=== PATIENT | female | born 1995 | race Caucasian/White ===

== ENCOUNTER 2016-11-14 00:15 | Emergency (ER) | payer MEDICAID, OTHER ==
[2016-11-14] MEDS ORDERED: ACETAMINOPHEN 325 MG TAB As Ordered ONE (00:37)
[2016-11-14] MEDS ORDERED: ONDANSETRON 4 MG ORAL DISINTEGRATING TAB (S0181) As Ordered ONE (00:37)
[2016-11-14 01:13] LABS: AMPHETAMINES LEVEL URINE NEGATIVE (NEGATIVE); BENZODIAZEPINES URINE NEGATIVE (NEGATIVE); COCAINE METABOLITE URINE NEGATIVE (NEGATIVE); CONTROL LINE INT CTR LINE PRESENT; METHADONE URINE NEGATIVE (NEGATIVE); OPIATES URINE NEGATIVE (NEGATIVE); TRICYCLIC ANTIDEPRESS URINE NEGATIVE (NEGATIVE)
--- NOTE | 2016-11-14 02:10 | REPUSA ---
CLINICAL HISTORY: Neck pain. TECHNIQUE: Multiple axial images were obtained through the cervical spine. Images were also reconstru cted in coronal and sagittal planes. The study was performed without IV contrast. COMMENTS: There is no fracture or spondylolisthesis visualized. The paraspinal soft tissues are unremarkable. T here are no lytic or blastic lesions. Straightening of cervical lordosis is seen, suggesting muscular spasm. No significant disk herniation is noted at any level. Canal and foramina remain patent. IMPRESSION: 1. No fracture or spondylolisthesis. 2. Straightening of cervical lordosis is seen, suggesting muscular spasm. Thank you for your kind referral of this patient.
[2016-11-14] MEDS ORDERED: traMADol 50 MG TAB As Ordered ONE (02:20)
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
== END 2016-11-14 02:30 | disposition home or self-care (01) ==
LOC: M ED 00:15
DX: S13.4XXA Sprain of ligaments of cervical spine, initial encounter (principal); V43.52XA Car driver injured in collision with other type car in traffic accident, initial encounter; Y92.410 Unspecified street and highway as the place of occurrence of the external cause; Y93.89 Activity, other specified; Y99.8 Other external cause status; F17.200 Nicotine dependence, unspecified, uncomplicated
CPT/HCPCS: 72072; 72110; 72125; 80306; 99283; G0480

== ENCOUNTER 2017-10-01 00:06 | Emergency (ER) | payer OTHER, SELFPAY ==
[~2017-10-01] VITALS: Ht 170.2 cm; Wt 88.6 kg
[~2017-10-01 00:06] MED LIST: FLAG500T PO
[2017-10-01 00:07] VITALS: BP 120/78
== END 2017-10-01 01:07 | disposition left against medical advice (07) ==
LOC: M ED 00:06
DX: Z53.21 Procedure and treatment not carried out due to patient leaving prior to being seen by health care provider (principal)

== ENCOUNTER 2018-05-13 12:47 | Emergency (ER) | payer OTHER, SELFPAY ==
[2018-05-13 13:18] LABS: BASO % 0.5 % (0.0-1.0); EOS # 0.2 10^3/uL (0.0-0.50); EOS % 2.2 % (0.0-3.0); HEMATOCRIT 37.2 % (36.0-47.0); HEMOGLOBIN 12.5 g/dl (12.0-15.5); IMMATURE GRANULOCYTE % 0.4 % (0-3.0); LYMPH # 2.1 10^3/uL (1.5-6.5); LYMPH % 24.5 % (24.0-44.0); MEAN CORPUSCULAR HEMOGLOBIN 31.3 pg (27.0-33.0); MEAN CORPUSCULAR HGB CONC 33.6 g/dl (32.0-36.5); MONO # 0.5 10^3/uL (0.0-0.8); MONO % 6.2 % (0.0-5.0); NEUTROPHILS # 5.7 10^3/uL (1.8-7.7); NEUTROPHILS % 66.2 % (36.0-66.0); PLATELET COUNT, AUTOMATED 309 10^3/uL (150-450); RED CELL DISTRIBUTION WIDTH 13.7 % (11.5-14.5); WHITE BLOOD COUNT 8.6 10^3/uL (4.0-10.0)
[2018-05-13 13:48] LABS: ALBUMIN 3.6 GM/DL (3.2-5.2); ALBUMIN/GLOBULIN RATIO 0.95 (1.00-1.93); ALKALINE PHOSPHATASE 69 U/L (45-117); ALT/SGPT 17 U/L (12-78); ANION GAP 7 MEQ/L (8-16); AST/SGOT 10 U/L (7-37); BILIRUBIN,TOTAL 0.5 MG/DL (0.2-1.0); BLOOD UREA NITROGEN 6 MG/DL (7-18); CALCIUM LEVEL 8.2 MG/DL (8.5-10.1); CARBON DIOXIDE LEVEL 22 MEQ/L (21-32); CHLORIDE LEVEL 112 MEQ/L (98-107); CREATININE FOR GFR 0.67 MG/DL (0.55-1.30); GLOMERULAR FILTRATION RATE > 60.0 (>60); GLUCOSE, FASTING 83 MG/DL (70-100); HCG, SERUM QUANTITATIVE 823 MIU/ML; POTASSIUM SERUM 3.8 MEQ/L (3.5-5.1); SODIUM LEVEL 141 MEQ/L (136-145); TOTAL PROTEIN 7.4 GM/DL (6.4-8.2)
[2018-05-13 14:32] LABS: AMORPHOUS SEDIMENT RFX SMALL (NEGATIVE); KETONE, URINE AUTO RFX 2+ mg/dL (NEGATIVE); MUCUS, URINE RFX LARGE (NEGATIVE); NITRITE, URINE AUTO RFX NEGATIVE (NEGATIVE); RBC, URINE AUTO RFX 9 /HPF (0-3); SQUAM EPITHELIAL CELL UR AURFX 39 /HPF (0-6)
[2018-05-13 14:37] LABS: LEUKOCYTE ESTERASE UR AUTO RFX 3+ (NEGATIVE); WBC, URINE AUTO RFX 39 /HPF (0-3)
[2018-05-13] MEDS: NITROFURANTOIN (MACROBID) 100 MG CAP PO (15:15)
[2018-05-13] MEDS: metroNIDAZOLE (FLAGYL) 500 MG TAB PO (16:29)
[2018-05-13 17:15] LABS: CHLAMYDIA DNA AMPLIFICATION NEGATIVE (NEGATIVE); GC DNA AMPLIFICATION NEGATIVE (NEGATIVE)
== END 2018-05-13 16:33 | disposition home or self-care (01) ==
LOC: M ED 12:47
DX: Z32.01 Encounter for pregnancy test, result positive (principal); N76.0 Acute vaginitis; N39.0 Urinary tract infection, site not specified
CPT/HCPCS: 76801

== ENCOUNTER 2018-05-20 10:41 | Emergency (ER) | payer OTHER ==
[2018-05-20 13:02] LABS: HCG, SERUM QUANTITATIVE 5845 MIU/ML
== END 2018-05-20 13:21 | disposition home or self-care (01) ==
LOC: M ED 10:41
DX: Z32.01 Encounter for pregnancy test, result positive (principal)
CPT/HCPCS: 84702

== ENCOUNTER 2018-06-01 20:10 | Emergency (ER) | payer OTHER ==
[2018-06-01 20:49] LABS: BASO # 0.1 10^3/uL (0.0-0.2); BASO % 0.4 % (0.0-1.0); EOS # 0.1 10^3/uL (0.0-0.50); EOS % 0.9 % (0.0-3.0); HEMATOCRIT 35.6 % (36.0-47.0); HEMOGLOBIN 12.2 g/dl (12.0-15.5); IMMATURE GRANULOCYTE % 0.3 % (0-3.0); LYMPH # 2.5 10^3/uL (1.5-6.5); LYMPH % 18.9 % (24.0-44.0); MEAN CORPUSCULAR HEMOGLOBIN 31.1 pg (27.0-33.0); MEAN CORPUSCULAR HGB CONC 34.3 g/dl (32.0-36.5); MEAN CORPUSCULAR VOLUME 90.8 fl (80.0-96.0); MONO # 0.8 10^3/uL (0.0-0.8); MONO % 6.2 % (0.0-5.0); NEUTROPHILS # 9.6 10^3/uL (1.8-7.7); NEUTROPHILS % 73.3 % (36.0-66.0); PLATELET COUNT, AUTOMATED 274 10^3/uL (150-450); RED BLOOD COUNT 3.92 10^6/uL (4.00-5.40); RED CELL DISTRIBUTION WIDTH 13.3 % (11.5-14.5); WHITE BLOOD COUNT 13.2 10^3/uL (4.0-10.0)
[2018-06-01 21:36] LABS: ALBUMIN 3.4 GM/DL (3.2-5.2); ALBUMIN/GLOBULIN RATIO 0.87 (1.00-1.93); ALKALINE PHOSPHATASE 54 U/L (45-117); ALT/SGPT 15 U/L (12-78); AMORPHOUS SEDIMENT RFX LARGE (NEGATIVE); ANION GAP 9 MEQ/L (8-16); AST/SGOT 10 U/L (7-37); BILIRUBIN,DIRECT < 0.1 MG/DL (0.0-0.2); BILIRUBIN,TOTAL 0.2 MG/DL (0.2-1.0); BLOOD UREA NITROGEN 10 MG/DL (7-18); CARBON DIOXIDE LEVEL 21 MEQ/L (21-32); CHLORIDE LEVEL 110 MEQ/L (98-107); CREATININE FOR GFR 0.59 MG/DL (0.55-1.30); GLOMERULAR FILTRATION RATE > 60.0 (>60); GLUCOSE, FASTING 82 MG/DL (70-100); HCG, SERUM QUANTITATIVE 41711 MIU/ML; KETONE, URINE AUTO RFX TRACE mg/dL (NEGATIVE); LIPASE 85 U/L (73-393); MUCUS, URINE RFX SMALL (NEGATIVE); NITRITE, URINE AUTO RFX NEGATIVE (NEGATIVE); POTASSIUM SERUM 3.5 MEQ/L (3.5-5.1); RBC, URINE AUTO RFX 0 /HPF (0-3); SODIUM LEVEL 140 MEQ/L (136-145); SPECIFIC GRAVITY UR AUTO RFX 1.014 (1.002-1.035); SQUAM EPITHELIAL CELL UR AURFX 7 /HPF (0-6); TOTAL PROTEIN 7.3 GM/DL (6.4-8.2); WBC, URINE AUTO RFX 2 /HPF (0-3)
[2018-06-01 21:43] LABS: LEUKOCYTE ESTERASE UR AUTO RFX TRACE (NEGATIVE)
== END 2018-06-01 23:55 | disposition left against medical advice (07) ==
LOC: M ED 20:10
DX: Z53.21 Procedure and treatment not carried out due to patient leaving prior to being seen by health care provider (principal)

== ENCOUNTER → 2018-06-05 | Outpatient (REF) | payer OTHER ==
[2018-06-05 17:28] LABS: HCG, SERUM QUANTITATIVE 59475 MIU/ML
[2018-06-06 09:36] LABS: RUBELLA IgG QUALITATIVE IMMUNE (IMMUNE)
[2018-06-06 09:47] LABS: HBsAg Prenatal NEGATIVE (NEGATIVE)
[2018-06-06 10:06] LABS: HIV 1&2 SCREEN CENTAUR NEGATIVE (NEGATIVE)
[2018-06-06 10:06] LABS: HEPATITIS C VIRUS ABY INDEX 0.3 INDEX (<0.8)
== END ==
LOC: M LAB REF 16:26
DX: O36.80X0 Pregnancy with inconclusive fetal viability, not applicable or unspecified (principal)

== ENCOUNTER 2018-07-04 15:21 | Emergency (ER) | payer OTHER | END 2018-07-04 18:07 | disposition home or self-care (01) | LOC: M ED 15:21 | DX: L02.31 Cutaneous abscess of buttock (principal); F41.9 Anxiety disorder, unspecified; F32.9 Major depressive disorder, single episode, unspecified; F17.210 Nicotine dependence, cigarettes, uncomplicated; Z79.2 Long term (current) use of antibiotics | CPT/HCPCS: 99282 ==

== ENCOUNTER 2018-07-06 14:36 | Emergency (ER) | payer OTHER | END 2018-07-06 16:22 | disposition home or self-care (01) | LOC: M ED 14:36 | DX: O99.341 Other mental disorders complicating pregnancy, first trimester (principal); F43.20 Adjustment disorder, unspecified; F41.9 Anxiety disorder, unspecified; F33.9 Major depressive disorder, recurrent, unspecified; O99.331 Smoking (tobacco) complicating pregnancy, first trimester; F17.200 Nicotine dependence, unspecified, uncomplicated; Z3A.13 13 weeks gestation of pregnancy; Z79.2 Long term (current) use of antibiotics | CPT/HCPCS: 99283 ==

== ENCOUNTER → 2018-07-13 | Outpatient (REF) | payer OTHER | LOC: M LAB REF 13:18 | DX: Z34.81 Encounter for supervision of other normal pregnancy, first trimester (principal); Z36.89 Encounter for other specified antenatal screening | CPT/HCPCS: 87086 ==

== ENCOUNTER 2018-10-01 21:52 | Outpatient (CLI) | payer OTHER ==
[2018-10-01] MEDS: ONDANSETRON 4 MG ORAL DISINTEGRATING TAB (Q0162 PER 1MG) SL (22:51)
== END 2018-10-01 23:57 | disposition home or self-care (01) ==
LOC: M LDO 21:52
DX: T76.11XA Adult physical abuse, suspected, initial encounter (principal)
CPT/HCPCS: Q0162

== ENCOUNTER → 2020-01-07 | Outpatient (REF) | payer OTHER ==
[~2020-01-07] MED LIST changes: +KEFL500C17; +MACR100C43 PO; +PRENCHW PO
[2020-01-07 22:50] LABS: INFLUENZA A AMPLIFICATION NEGATIVE (NEGATIVE); INFLUENZA B AMPLIFICATION POSITIVE (NEGATIVE)
== END ==
LOC: M LAB REF 21:53
PROVIDERS: ATTEND Physician Assistant
DX: J11.1 Influenza due to unidentified influenza virus with other respiratory manifestations (principal)

== ENCOUNTER 2020-01-12 19:13 | Emergency (ER) | payer OTHER ==
[~2020-01-12] VITALS: Ht 170.2 cm; Wt 90.9 kg
[2020-01-12] MEDS ORDERED: CYCL10TA PO (20:20)
[2020-01-12] MEDS ORDERED: NAPR-837 PO (20:20)
[2020-01-12 20:24] VITALS: BP 107/61
[2020-01-12] MEDS ORDERED: NAPROXEN 250 MG TAB PO ONE (20:30)
[2020-01-12] MEDS ORDERED: CYCLOBENZAPRINE 10 MG TAB PO ONE (20:30)
== END 2020-01-12 20:34 | disposition home or self-care (01) ==
LOC: M ED 19:13
DX: S39.012A Strain of muscle, fascia and tendon of lower back, initial encounter (principal); X50.0XXA Overexertion from strenuous movement or load, initial encounter; Y92.9 Unspecified place or not applicable; Y93.9 Activity, unspecified; Y99.9 Unspecified external cause status

== ENCOUNTER 2021-09-28 07:59 | Emergency (ER) | payer OTHER, SELFPAY ==
[~2021-09-28] VITALS: Ht 177.8 cm; Wt 85.1 kg
[~2021-09-28 07:59] MED LIST changes: +CYCL-707 PO; +NAPR-837 PO
[2021-09-28 11:09] VITALS: BP 121/63
== END 2021-09-28 11:12 | disposition home or self-care (01) ==
LOC: M ED 07:59
DX: M25.512 Pain in left shoulder (principal); M54.2 Cervicalgia; R42 Dizziness and giddiness; F41.8 Other specified anxiety disorders; F32.89 Other specified depressive episodes; F17.200 Nicotine dependence, unspecified, uncomplicated